=== PATIENT | female | born 1980 ===

== ENCOUNTER → 2017-02-19 | Outpatient (CLI) | payer BC, OTHER ==
[~2017-02-19] MED LIST: AMOX500 PO
== END | disposition home or self-care (01) ==
LOC: LAB 13:30
DX: N39.0 Urinary tract infection, site not specified (principal); R30.0 Dysuria
CPT/HCPCS: 87077; 87086; 87186

== ENCOUNTER 2020-05-28 09:50 | Day surgery (SDC) | payer OTHER, BC ==
[~2020-05-28] VITALS: Ht 165.1 cm; Wt 91.7 kg
== END 2020-05-28 12:00 | disposition home or self-care (01) ==
LOC: ORSCSDS 09:50
PROVIDERS: Internal Medicine Gastroenterology
PROC: 0DJD8ZZ Inspection of Lower Intestinal Tract, Via Natural or Artificial Opening Endoscopic (ICD-10-PCS; principal; 2020-05-28 11:00)
DX: Z12.11 Encounter for screening for malignant neoplasm of colon (principal); Z80.0 Family history of malignant neoplasm of digestive organs; K64.8 Other hemorrhoids; J45.909 Unspecified asthma, uncomplicated
CPT/HCPCS: J2704; J7120